=== PATIENT | female | born 1980 | race Caucasian/White ===

== ENCOUNTER 2017-10-14 06:00 | Inpatient (IN) | END 2017-10-17 16:00 | disposition home or self-care (01) | DRG 775 ==

== ENCOUNTER 2018-08-19 09:51 | Emergency (ER) | payer MEDICAID, OTHER ==
[~2018-08-19] VITALS: Wt 79.0 kg
[~2018-08-19 09:51] MED LIST: ACET500C5 PO; ZOF8 PO
[2018-08-19 10:00] VITALS: BP 132/73; PULSE 90; RESP 18
[2018-08-19] MEDS ORDERED: NPH10OT RIGHT EAR (11:00)
[2018-08-19] MEDS ORDERED: PSEU-79 PO (11:00)
[2018-08-19] MEDS ORDERED: AMOX1TAB10 PO (11:00)
--- NOTE | 2018-08-19 11:18 | ERD ---
ER Documentation Chief Complaint Chief Complaint FLU X 4 DAYS, WITH EAR ACHE AND LYMPH NODE SWELLING HPI 37-year-old female presenting with flulike symptoms for 4 days. Patient has some lymph node swelling to the right side of her cheek with ear pain. She has had a fever last night and no fever today. Has a mild sore throat with runny nose. Sinus congestion. Took Mucinex for symptoms. Denies other medical problems. NKDA. Surgical history denies. Social history denies ROS All systems reviewed and are negative except as per history of present illness. Medications Home Meds Active Scripts Pseudoephedrine Hcl* (Suphedrin*) 30 Mg Tablet, 30 MG PO Q6 PRN for CONGESTION, #30 TAB Prov:MONISHA COULTER PA-C 08/19/18 Neomycin/Polymyxin/Hydrocort* (Cortisporin* Otic) 10 Ml Susp, 4 DROP RIGHT EAR QID for 7 Days, EA Prov:MONISHA COULTER PA-C 08/19/18 Amoxicillin/Potassium Clav (Amox-Clav 875-125 mg Tablet) 875-125 mg Tab, 1 TAB PO BID for 7 Days, #14 TAB Prov:MONISHA COULTER PA-C 08/19/18 Ondansetron Hcl* (Zofran* ODT) 8 mg -ODT Tab.disper, 8 MG PO Q6 PRN for NAUSEA AND/OR VOMITING, #8 TAB Prov:REJI DROAN MD 08/18/15 Acetaminophen* (Tylophen*) 500 Mg Capsule, 1 CAP PO Q6H PRN for PAIN AND OR ELEVATED TEMP, #14 CAP Prov:REJI DORAN MD 08/18/15 Allergies Allergies: Coded Allergies: No Known Allergy (Unverified , 10/14/17) PMhx/Soc Hx Alcohol Use: No Hx Substance Use: No Hx Tobacco Use: No FmHx Family History: No diabetes, No coronary disease, No other Physical Exam Vitals Vital Signs Date Temp Pulse Resp B/P (MAP) Pulse Ox O2 O2 Flow FiO2 Time Delivery Rate 08/19/18 98.1 90 18 132/73 99 10:00 (92) Physical Exam GENERAL: The patient is well-appearing, well-nourished, in no acute distress HEENT: Atraumatic. Conjunctivae are pink. Pupils equal, round, and reactive to light. There is no scleral icterus. Tympanic membranes clear bilaterally. Oropharynx clear. No swelling noted to the right cheek and preauricular lymph node. Erythema noted to the external ear canal with positive tragal tenderness. Questionable dental pain NECK: C-spine is soft and supple. There is no meningismus. There is no cervical lymphadenopathy. CHEST: Clear to auscultation bilaterally. There are no rales, wheezes or rhonc hi. HEART: Regular rate and rhythm. No murmurs, clicks, rubs or gallops. Procedures/MDM MDM: 37-year-old female presenting with ear pain and lymph node swelling. I will treat patient with antibiotics as there is a concern for possible early dental abscess that she does have pain to the dental region. I have low suspicion for airway compromise. I have low suspicion for meningitis or sepsis. Patient is discharged with strict ER precautions and told to follow-up with primary care within 1 to 2 days for close evaluation. Patient is told symptoms change or worsen to return immediately to the ER. All questions answered at discharge Departure Diagnosis: Primary Impression: Upper respiratory infection Condition: Stable Patient Instructions: Sinusitis, Abx Tx Referrals: [facility] YOU HAVE RECEIVED A MEDICAL SCREENING EXAM AND THE RESULTS INDICATE THAT YOU DO NOT HAVE A CONDITION THAT REQUIRES URGENT TREATMENT IN THE EMERGENCY DEPARTMENT. FURTHER EVALUATION AND TREATMENT OF YOUR CONDITION CAN WAIT UNTIL YOU ARE SEEN IN YOUR DOCTORS OFFICE WITHIN THE NEXT 1-2 DAYS. IT IS YOUR RESPONSIBILITY TO MAKE AN APPOINTMENT FOR FOLOW-UP CARE. IF YOU HAVE A PRIMARY DOCTOR --you should call your primary doctor and schedule an appointment IF YOU DO NOT HAVE A PRIMARY DOCTOR YOU CAN CALL OUR PHYSICIAN REFERRAL HOTLINE AT IF YOU CAN NOT AFFORD TO SEE A PHYSICIAN YOU CAN CHOSE FROM THE FOLLOWING [facility] [address] [facility] [address] [facility] [facility] [address] [facility] [address] [facility] [address] [facility] [facility]. [address] Additional Instructions: FOLLOW UP WITH YOUR PRIMARY CARE PHYSICIAN TOMORROW.Return to this facility if you are not improving as expected. MONISHA COULTER PA-C August 19, 2018 11:18
== END 2018-08-19 11:40 | disposition home or self-care (01) ==
LOC: FTE 09:51
DX: J06.9 Acute upper respiratory infection, unspecified (principal)
CPT/HCPCS: 99283